=== PATIENT | male | born 1945 | race Two or more races ===

== ENCOUNTER 2024-05-13 23:33 | Emergency (ER) | payer MEDICARE, OTHER, SELFPAY ==
[2024-05-13 23:48] VITALS: BP 154/84
[2024-05-14] VITALS: BP 134/80
--- NOTE | 2024-05-14 01:30 | ED.GENMED ---
History of Present Illness
General
Chief Complaint: Skin Surface Trauma
Time Seen by Provider: 05/14/24 00:48
History of Present Illness
History of Present Illness:
78-year-old male presenting to the emergency department for right thumb injury. Patient reports prior to arrival he injured his right thumb with a nail, at the lateral aspect of the nailbed. It was initially bleeding, says controlled. He is
right-hand dominant. Unknown tetanus. Denies issues with range of motion. Denies numbness to the extremity. Denies redness or swelling. Denies additional acute medical complaints.
Phy Exam
Physical Exam
Physical Exam:
General: Well-appearing, no clinical signs of dehydration, nontoxic and in no acute distress
HEENT: protecting airway
Neck: appears supple
CV: Normal heart rate
Resp: No accessory muscle use, no increased work of breathing
Abd: Nondistended
Extremities: Small superficial laceration to the medial aspect of the distal thumb at the nail bed, 2 cm. Range of motion intact. Sensation intact. No erythema or warmth
Neuro: alert, no focal neurologic deficit
: deferred
Rectal: deferred
Psych: Normal affect
Skin: Intact
Course
Orders/Labs/Results
Orders:
Orders
05/14/24 01:19
Tetanus/Diphth/Acelpertussis [Adacel] 0.5 ml IM .ONCE ONE
05/14/24 23:53
CR Finger(s)/thumb Min 2 Vw Rt Urgent
Reason For Exam: injury
Indicate Which Finger:: Thumb
Vital Signs
Initial and Last Documented VS:
Initial Vital Signs
Temp Pulse Resp BP Pulse Ox
97.6 F 60 20 154/84 100
05/13/24 23:48 05/13/24 23:48 05/13/24 23:48 05/13/24 23:48 05/13/24 23:48
Last Documented Vital Signs
Temp Pulse Resp BP Pulse Ox
97.6 F 60 20 154/84 100
05/13/24 23:48 05/13/24 23:48 05/13/24 23:48 05/13/24 23:48 05/13/24 23:48
Procedures
Laceration Closure
Right Medial Distal First Thumb:
Status of Wound: clean
Size of Wound in cm: 2
Preparation: cleaned with saline
Type of Closure: Dermabond-skin glue
MDM/Problems Addressed
MDM/Problems Addressed:
78-year-old male presenting for right thumb injury with a nail. Vital signs significant for mild hypertension.
On exam, patient well-appearing, no acute distress or discomfort. Benign examination of the right thumb. Superficial laceration, clean. No neurovascular compromise or signs of infection. Laceration was appropriately irrigated, repaired with
Dermabond. Will update tetanus. No compromise to the nailbed. Patient notes that the nail that he use was dirty. For this reason will prophylactically administer antibiotics. On the stable for discharge. Return the patient verbalized
understanding
*Critical Care Note
Total Time (30-74mins, 75-104mins- exclusive of procedures): Not Applicable
ED Attending Note
-
Portions of this chart may have been created with voice recognition software.� Occasional wrong word or��sound alike� substitutions may have occurred due to the inherent limitations of voice recognition software.
Discharge Plan
Departure
Patient Disposition: Home (Routine Discharge)
Date of Disposition: 05/14/24
Time of Disposition: 01:34
Patient with high blood pressure during this ER visit?: Yes
Condition: Good
Discharge Problem:
Laceration of thumb, right
Instructions: Laceration Repair With Glue (DC)
Prescriptions:
New
amoxicillin-pot clavulanate 875-125 mg tablet
1 tab PO BID 7 Days Qty: 14 0RF
Activity Restrictions/Additional Instructions:
You were seen in the emergency department for a thumb laceration
Please follow-up closely with your primary care physician.
Return to the emergency department for any worsening of your symptoms, development of redness or swelling to the thumb, drainage from the wound, or any development of chest pain, difficulty breathing, abdominal pain with persistent vomiting and
inability to tolerate food or liquid by mouth (concern for dehydration), weakness, headache or confusion, fever greater than 100.4, or any additional symptoms that are concerning to you.
Thank you for choosing [facility].
Interventions
Interventions:
*Risk Screen - Suicide Last Done: 05/13/24 23:48
*General Assessment Last Done: 05/13/24 23:48
*Neglect/Abuse Screening Last Done: 05/13/24 23:48
ED- Fall Risk Assessment Last Done: 05/13/24 23:48
*ED COVID-19 Vaccine History Last Done: 05/13/24 23:48
ED-Skin Assessment Last Done: 05/14/24 01:11
Discharge Date and Time
Print Language: LATVIAN
[2024-05-14] MEDS: ADACEL 0.5 ML IM (01:36)
== END 2024-05-14 01:55 | disposition home or self-care (01) ==
LOC: EMR 23:33
PROVIDERS: EMERGENCY PHYSICIAN Student in an Organized Health Care Education/Training Program; FAMILY PHYSICIAN Internal Medicine
DX: S61.011A Laceration without foreign body of right thumb without damage to nail, initial encounter (principal); X58.XXXA Exposure to other specified factors, initial encounter; Z23 Encounter for immunization; I10 Essential (primary) hypertension
CPT/HCPCS: 99283; 12001; 90471; 73140; 90715

== ENCOUNTER 2025-09-16 21:42 | Emergency (ER) | payer MEDICARE, OTHER, SELFPAY ==
[2025-09-16 21:45] VITALS: BP 150/88
--- NOTE | 2025-09-16 23:31 | ED.GENMED ---
History of Present Illness
General
Chief Complaint: Male Genito-Urinary Symptoms
Source: patient
Exam Limitations: none
Time Seen by Provider: 09/16/25 22:57
History of Present Illness
History of Present Illness:
79-year-old male on a baby aspirin daily accidentally took 2 baby aspirin yesterday but noticed dark urine afterwards. He feels as though there is blood in the urine. He denies fevers dysuria or increased frequency. He denies flank pain.
states that he has a history of UTIs and he has a history of acute kidney injury. No other complaints at this time
Phy Exam
Physical Exam
Physical Exam:
General: Well-appearing male no acute respiratory distress
HEENT: Normal cephalic atraumatic
Heart: Regular rate and rhythm
Lungs: Clear no wheeze
Abdomen is soft nontender nondistended
Extremities: No cyanosis
Course
Orders/Labs/Results
Orders:
Orders
09/16/25 23:14
Bladder Scan- Treatment ONCE
09/16/25 23:21
Urinalysis Reflex To Culture Urgent
Date Specimen was Collected: 09/16/25
Time Specimen was Collected: 23:17
Urine Microscopic Reflex Cult Urgent
Urine Culture Urgent
SYLVIA Source: U
Specimen Description:
Date Specimen was Collected: 09/16/25
Time Specimen was Collected: 23:17
09/16/25 23:51
Complete Blood Count/With Diff Urgent
Comprehensive Metabolic Panel Urgent
09/17/25 00:23
Straight cath- Treatment ONCE
Abnormal Lab Results
09/16/25 09/16/25
23:21 23:51
Hgb 12.5 L g/dL
(13.0-18.0)
Hct 35.9 L %
(39.0-52.0)
MCV 63.5 L fL
(80.0-94.0)
MCH 22.1 L pg
(27.0-31.0)
RDW 17.7 H %
(11.5-14.5)
Abs Immat Gran (auto) 0.1 H 10^3/uL
(0-0.05)
Immature Gran % 1.4 H %
(0-0.5)
BUN 29 H mg/dl
(9-20)
Creatinine 1.4 H mg/dL
(0.7-1.3)
Ur Occult Blood Reflex 4+ A
(Negative)
Leukocyte Esterase Rfl 2+ A
(Negative)
Urine RBC >100 A /HPF
(0-2)
Urine WBC (Reflex) >100 A /HPF
(0-5)
Urine Bacteria (Reflex) Many A
(Negative)
Urine Albumin (Reflex) 3+ A
(Neg - Trace)
09/16/25 23:51
09/16/25 23:51
Vital Signs
Initial and Last Documented VS:
Initial Vital Signs
Temp Pulse Resp BP Pulse Ox
98.5 F 69 18 150/88 97
09/16/25 21:45 09/16/25 21:45 09/16/25 21:45 09/16/25 21:45 09/16/25 21:45
Last Documented Vital Signs
Temp Pulse Resp BP Pulse Ox
98.5 F 69 18 150/88 97
09/16/25 21:45 09/16/25 21:45 09/16/25 21:45 09/16/25 21:45 09/16/25 23:33
MDM/Problems Addressed
Differential Diagnosis Includes:
Patient with presumed blood in the urine. Question cystitis versus kidney injury versus dehydration
Patient did provide urine sample here we will do postvoid residual bladder scan is check labs as well as urinalysis
*Pulse Oximetry
SaO2: 97
Oxygen Mode of Delivery: Room air
Patient hypoxic: no
*Critical Care Note
Total Time (30-74mins, 75-104mins- exclusive of procedures): Not Applicable
Update Note
Update Note:
Will start patient on Omnicef given potential UTI. Suspect hemorrhagic cystitis. No prior urine cultures on our system to review. Will prescribe Omnicef. Culture will be ordered. He was advised to follow-up with his urologist for further
evaluation. It was decided to perform a straight catheter to empty his bladder as he has been slowly retaining more urine with time.
Patient has self cath in the past and he prefers this over
A Barragan catheter as he ended up with an infection after having a Barragan catheter in the past. Postvoid residual here showed 280 mL. Straight cath provided to empty bladder here.
ED Attending Note
-
Portions of this chart may have been created with voice recognition software.� Occasional wrong word or��sound alike� substitutions may have occurred due to the inherent limitations of voice recognition software.
Discharge Plan
Departure
Patient Disposition: Home (Routine Discharge)
Date of Disposition: 09/17/25
Time of Disposition: 00:38
Patient with high blood pressure during this ER visit?: No
Discharge Problem:
Acute hemorrhagic cystitis
Instructions: Urinary Retention (DC)
Prescriptions:
New
cefdinir 300 mg capsule
300 mg PO BID Qty: 14 0RF
(DME) catheter 16 Fr misc
See Rx Instructions .ROUTE Qty: 12 0RF
Rx Instructions:
As directed
No Action
amoxicillin-pot clavulanate 875-125 mg tablet
1 tab PO BID 7 Days Qty: 14 0RF
Referrals:
MINDY ASHER MD [Family Provider, Internal Medicine]
Activity Restrictions/Additional Instructions:
Use antibiotic as directed. You should receive a call if your antibiotic needs to be changed. Please follow-up with urology for next available appointment. A prescription was provided for more kits for self cathing.
Interventions
Interventions:
*Risk Screen - Suicide Last Done: 09/16/25 21:45
*General Assessment Last Done: 09/16/25 21:45
*Neglect/Abuse Screening Last Done: 09/16/25 21:45
*ED COVID-19 Vaccine History Last Done: 09/16/25 21:45
*ED Influenza Vaccine History Last Done: 09/16/25 21:45
Discharge Date and Time
Print Language: WELSH
[2025-09-16 23:33] LABS: Urine Character Slightly Cloudy (Clear)
[2025-09-17 00:02] LABS: Hematocrit 35.9 % (39.0-52.0); Hemoglobin 12.5 g/dL (13.0-18.0); Mean Corp Hgb Conc. 34.8 g/dL (33.0-37.0); Mean Corpuscular Volume 63.5 fL (80.0-94.0); Nucleated Red Blood Cells % 0 % (-); Platelet Count 175 10^3/uL (130-400); Red Cell Dist. Width 17.7 % (11.5-14.5)
[2025-09-17 00:13] LABS: Urine Squamous Cell >30 /LPF (Few)
[2025-09-17 00:14] LABS: Urine Red Blood Cell >100 /HPF (0-2); Urine White Cell >100 /HPF (0-5)
[2025-09-17 00:25] LABS: ALT (SGPT) 30 U/L (0-50); AST (SGOT) 38 U/L (17-59); Albumin 4.1 g/dl (3.5-5.0); Alkaline Phosphatase 62 U/L (38-126); Blood Urea Nitrogen 29 mg/dl (9-20); Calcium 8.5 mg/dl (8.4-10.2); Carbon Dioxide 25 mmol/L (22-30); Chloride 105 mmol/L (98-107); Glucose 90 mg/dl (70-99); Potassium 4.2 mmol/L (3.5-5.1); Sodium 135 mmol/L (135-145); Total Protein 7.0 g/dl (6.3-8.2); eGFR 51.77
[2025-09-17] MEDS: OMNICEF 300 MG PO (00:58)
[2025-09-17 01:01] VITALS: BP 140/72
== END 2025-09-17 01:28 | disposition home or self-care (01) ==
LOC: EMR 21:42
PROVIDERS: Physician Assistant; EMERGENCY PHYSICIAN Emergency Medicine; FAMILY PHYSICIAN Internal Medicine
DX: N30.01 Acute cystitis with hematuria (principal); Z79.82 Long term (current) use of aspirin
CPT/HCPCS: 99283; 80053; 81003; 81015; 85025; 87086